=== PATIENT | female | born 1975 | race Caucasian/White ===

== ENCOUNTER 2017-07-28 22:13 | Inpatient (IN) ==
[2017-07-28] MEDS ORDERED: DOCUSATE 100 MG CAPSULE PO PRN (22:50)
[2017-07-28] MEDS ORDERED: NORMAL SALINE 10 ML SYRINGE FLUSH IVP PRN (22:50)
[2017-07-28] MEDS ORDERED: CALCIUM CARBONATE 500 MG (TUMS) CHEWABLE TABLET PO PRN (22:50)
[2017-07-28] MEDS ORDERED: LIDOCAINE W/ SODIUM BICARB 0.5 ML SYR SUBD PRN (22:50)
[2017-07-29] MEDS: HYDROmorphone 2 MG/1 ML IVP PRN ×2 (00:34→08:14)
[2017-07-29] MEDS: Sodium Chloride 0.9% 1,000 ML PRIMARY IV SCH ×3 (00:35→17:06)
--- NOTE | 2017-07-29 01:18 | PDOC ---
HPI - History of Present Illness Date of Service: 07/29/17 Time of Service: 01:13 Chief Complaint: Abdominal pain History of Present Illness: This very pleasant 42-year-old female who lives in [place], [place], and suffers from rheumatoid arthritis and postsurgical menopause for which she is on hormone replacement therapy who presents accompanied with her family here tonight in transfer from Dr. Ceja for acute pancreatitis. She states that she developed abdominal pain as her chief complaint at approximate 6:30 tonight. She has had some nausea and diarrhea and vomiting with that. She is not had this happen before. She has noticed some left shoulder pain and right arm numbness with this as well. She states that lately she has not been feeling very good when she has been eating and his had some vague abdominal pain or abdominal discomfort. She states that morphine did help control the pain in [place]. She was diagnosed with acute pancreatitis based on her CT scan, but they did not have the ability to do an ultrasound to look at the gallbladder more specifically. The patient states that she was quite chilled and was freezing, but no recorded fevers. She states that she drinks occasionally, and she does work as a mechanic sound technician. She is on simponi for her rheumatoid arthritis and on my review it does not appear that pancreatitis has been a reported complication of this drug. Estradiol however is known to cause pancreatitis. I was asked to accept the patient for care of the pancreatitis, and continued workup of the potential etiologies including cholelithiasis. Past Medical History Medical History: 1. Rheumatoid arthritis. 2. Postsurgical menopause on estradiol Surgical History: 1. Total abdominal hysterectomy with BSO Pertinent Family History: States that her mother and father are healthy. No major medical issues. Past Social History: Does not smoke. Occasionally drinks alcohol. Works as a mechanic sound technician and has a second job as well. Has 3 healthy children. . Tobacco Use: Never Smoker In the Past 12 Months, Have Used or Abuse Any of the Following Substance: None Alcohol Use: Occasionally Medication / Allergies Home Medications: Home Medications 3 Medication Instructions Recorded Confirmed Type Estradiol 1 QAM 06/03/10 06/03/10 History Ibuprofen 1 PRN6 PRN 06/03/10 06/03/10 History Golimumab [Simponi] 50 mg SUBCUT MONTHLY 07/29/17 07/29/17 History Allergies/Adverse Reactions: Allergies 3 Allergy/AdvReac Type Severity Reaction Status Date / Time No Known Allergies Allergy Unverified 06/03/10 13:47 Review of Systems - Review of Systems All Systems: Reviewed & No Additional Complaints Except as Stated (I did a 12 point review of systems and it is negative except for that in history present illness and that noted below.) - Constitutional Constitutional: REPORTS: Fever / Chills (No fevers but having chills) - Respiratory Respiratory: REPORTS: Negative System Review - Cardiovascular Cardiovascular: REPORTS: Negative System Review - Gastrointestinal Gastrointestinal / Abdominal: REPORTS: Nausea, Vomiting, Diarrhea, Abdominal Pain, See HPI - Genitourinary Genitourinary: REPORTS: Negative System Review - Neurological Neurologic: REPORTS: Headache (States that she had migraine headaches up until one year ago.) - Additonal Details Additional ROS Details: Takes occasional ibuprofen for aches and pains. States that she typically has rheumatoid flares the tensor the 15th of every month, but does not take anything different for those. Exam - Vitals Vital Signs: Vital Signs Temperature 97.8 F Temperature Source Temporal Artery Scan Pulse Rate [Pulse Oximeter] 79 Respiratory Rate 18 Blood Pressure [Right Arm] 132/90 Pulse Ox 94 Oxygen Delivery Method Room Air Height 5 ft 6 in Weight 204 lb 12.8 oz - General General Appearance: No Acute Distress, Cooperative - Head Head Exam: Normal Inspection, Normocephalic, Atraumatic - Eye Eye Exam: POSITIVE: No Scleral Icterus - ENT ENT Exam: POSITIVE: Mucous Membranes Moist - Neck Neck Exam: Normal Inspection, No Tenderness, No Lymphadenopathy, No Thyromegaly , JVP is not Raised - Respiratory Respiratory Exam: POSITIVE: Clear to Auscultation - Bilaterally, Normal To Percussion, Normal to Percussion and Palpation - Cardiovascular Cardiovascular Exam: POSITIVE: RRR, No Murmur, No Clicks, No Gallops, No Rubs, No JVD - GI/Abdominal GI/Abdominal Exam: POSITIVE: Normal Bowel Sounds, Non Tender, Non Distended, Soft - Rectal Rectal Exam: POSITIVE: Deferred - External Exam: POSITIVE: Deferred Exam: POSITIVE: Deferred - Extremities Extremities Exam: POSITIVE: No Clubbing Present, No Edema Present, No Cyanosis Present - Back Back Exam: POSITIVE: CVA Tenderness (L) - Neurological Neurological Exam: POSITIVE: Alert, Oriented x 3, No Facial Droop, Speech Intact / Clear, Moves All Extremities Equally - Integumentary Integumentary Exam: POSITIVE: Normal Color, Warm, Dry, Intact Additional Integumentary Exam Details: Multiple tattoos. Back, arms, legs - Central Line Examination Central Line Present on Admission: No Results - Labs Additional Lab Results: Urinalysis from [place] was negative. Lipase was 39,466 H. pylori and blood was negative. CBC showed white blood cell count of 8.79, hemoglobin 15, hematocrit 42.8, platelets 205,000, 53.9 segs and no bands reported Sodium is 140, potassium low at 3.3, chloride 102, CO2 24.9, BUN 13, creatinine 0.85, glucose 98. Calcium 9.7 Total protein 8.3, albumin 4.2, ALT 30, AST 25, total bilirubin 0.4, alkaline phosphatase is 60 - Imaging Status: Image Reviewed by Me (I did look at the images of the CAT scan and the acute abdominal series. I do not have actual reports of these films. I will have our radiologist over read them. The acute abdominal series appears normal on my view with no evidence of pneumonia or issues with the bowel gas pattern. I don't think that there is actual evidence of an inflamed pancreas on the CT scan, and per my review of Dr. Ceja's note it appears that the patient had some liver cysts but otherwise unremarkable CT scan without abnormal pancreas.) Assessment and Plan - Patient Problems (1) Pancreatitis Current Visit: Yes Status: Acute Code(s): K85.90 - Acute pancreatitis without necrosis or infection, unspecified Qualifiers: Chronicity: acute Pancreatitis type: unspecified pancreatitis type Acute pancreatitis complication: no infection or necrosis Qualified Code(s): K85.90 - Acute pancreatitis without necrosis or infection, unspecified (2) Rheumatoid arthritis Current Visit: Yes Status: Acute Code(s): M06.9 - Rheumatoid arthritis, unspecified Qualifiers: Rheumatoid arthritis location: multiple sites Rheumatoid factor presence: unspecified presence Qualified Code(s): M06.9 - Rheumatoid arthritis, unspecified (3) Postsurgical menopause Current Visit: Yes Status: Acute Code(s): E89.40 - Asymptomatic postprocedural ovarian failure - Assessment / Plan Additional Assessment/Plan Details: Admit the patient. Nothing by mouth/IV fluids/pain control. Get ultrasound of gallbladder/abdominal ultrasound this morning Check triglycerides this morning. Also check lipase this morning Ultimately, if no cause can be found, it's likely related to the estradiol and that should be discontinued. I'm can hold off on this medicine for now. I cannot rule out simponi as a cause, but it is not reported. Check labs this a.m. Given her itching on narcotics, I will go ahead and prescribe Benadryl as well. I will started telemetry monitoring and pulse ox monitoring given narcotics and Benadryl dosing as well. Plan above discussed with patient and she agrees. She is full code. I reviewed the records provided by Dr. Ceja in the [facility].
[2017-07-29] MEDS: ONDANSETRON 4 MG/2 ML VIAL IVP PRN ×3 (01:28→09:13)
[2017-07-29] MEDS ORDERED: diphenhydrAMINE 50 MG/1 ML VIAL IVP PRN (01:36)
[2017-07-29 05:24] LABS: BASOPHILS # (AUTO) 0.02 10*3/UL; BASOPHILS % (AUTO) 0.3 % (0-1); EOSINOPHILS # (AUTO) 0.24 10*3/UL; EOSINOPHILS % (AUTO) 3.5 % (0-8); Hematocrit [HCT] 38.2 % (37.0-47.0); Hemoglobin [HGB] 12.7 g/dL (12.0-16.0); LYMPHOCYTES # (AUTO) 1.51 10*3/uL; MEAN CORPUSCULAR HGB CONC 33.2 g/dL (33-37); MEAN CORPUSCULAR VOLUME 90.1 FL (81-99); MONOCYTES # (AUTO) 0.36 10*3/UL (0.3-0.8); MONOCYTES % (AUTO) 5.3 % (5-15); NEUTROPHILS # (AUTO) 4.67 10*3/UL; NEUTROPHILS % (AUTO) 68.6 % (50-80); RED BLOOD COUNT 4.24 10^6/uL (4.20-5.40)
[2017-07-29 05:30] LABS: BLOOD UREA NITROGEN 9 mg/dL (7-22); BUN/CREATININE RATIO 12.85 (6-20); LIPASE 150 IU/L (23-300); SERUM ALBUMIN 3.9 g/dL (3.5-4.8)
[2017-07-29 05:31] LABS: PLATELET MORPHOLOGY COMMENT NORMAL MORPHOLOGY (NORM); RBC MORPHOLOGY COMMENT NORMAL MORPHOLOGY (NORM); WBC MORPHOLOGY COMMENT NORMAL MORPHOLOGY (NORM)
[2017-07-29] MEDS: ACETAMINOPHEN 325 MG TABLET PO PRN ×2 (05:42→11:25)
[2017-07-29 05:52] LABS: CHOL/HDL RATIO 3.19 RATIO (0-4.0)
[2017-07-29 08:34] VITALS: TEMP 97.2
[2017-07-29] MEDS ORDERED: Pantoprazole Inj 40 MG in Normal Saline Flush 10 ML IVP SCH (09:00)
[2017-07-29] MEDS ORDERED: Prochlorperazine Edisylate Inj 10mg/2ml vial ONE (11:16)
[2017-07-29] MEDS ORDERED: Prochlorperazine Edisylate Inj 10mg/2ml vial IVP PRN (11:17)
--- NOTE | 2017-07-29 12:50 | DI ---
ABDOMINAL ULTRASOUND, 07/29/2017 7:00 AM: Clinical History: Pancreatitis. Previous Exam: None at this facility. Scans are performed through the right and left upper quadrants in multiple projections. The gallbladder is well distended and has a normal wall thickness. There are no gall stones. Common b ile duct measures 4 mm. The visualized portions of the right and left lobes of the liver, both kidney s, and the spleen are normal. The head and body of the pancreas are visualized and that structure is normal. There is no evidence of dilatation of the pancreatic duct or of peripancreatic fluid collecti ons. The IVC and aorta are normal. READING: Normal abdominal ultrasound. The pancreas has a normal appearance.
[2017-07-29 13:11] LABS: AMPHETAMINE SCREEN NEGATIVE (NEG); CANNABINOID SCREEN,URINE NEGATIVE (NEG); COCAINE SCREEN NEGATIVE (NEG); METHADONE URINE SCREEN NEGATIVE (NEG); METHAMPHETAMINES SCREEN,URINE NEGATIVE (NEG); OPIATE SCREEN,URINE POSITIVE (NEG); URINE SAMPLE TYPE VOIDED SPECIMEN; URINE SPECIFIC GRAVITY - MAN 1.024
[2017-07-29 15:30] VITALS: BP 128/81; RESP 12; O2SAT 95
--- NOTE | 2017-07-29 16:58 | DCSUMMARY ---
Hospitalization Summary Admit Date: 07/29/2017 Discharge Date: 07/29/17 Primary Diagnosis:: viral gastroenteritis Hospital Course: This very pleasant 42-year-old female that resides in [place], [place]. She presented there with abdominal pain, nausea, vomiting, and diarrhea. Lipase was quite elevated, and she was sent here as they did not have the ability to do an ultrasound. CT scan there did not show any evidence of pancreatitis but showed some liver cysts. The patient got here, was placed on pain medications, nothing by mouth, IV fluids, and antiemetics. She improved to the point where we can advance her diet, and she had chicken noodle soup and did not have any worsening of nausea, vomiting, or diarrhea. In fact her diarrhea resolved. She felt the nausea medication alone would help and she was to go home. She did not have any complaints of chest pain, shortness breath, nausea or vomiting at 5:00. She was examined earlier this afternoon. She had a regular rate and rhythm on her heart, lungs were clear, abdomen soft and nontender, no edema. Assessment and Plan: 1. As per discharge assessments noted 2. Disposition: Patient is discharged home. 3. Condition on discharge, stable and improved. 4. Diet: Brat diet for 2 days then resume regular diet. 5. Activities: resume normal activities 6. Follow-Up: 1. See primary care provider in one week or sooner if symptoms persist. 2. 7. Medications at the Time of Discharge: Home Medications 3 Medication Instructions Recorded Confirmed Type Estradiol 1 QAM 06/03/10 06/03/10 History Ibuprofen 1 PRN6 PRN 06/03/10 06/03/10 History Golimumab [Simponi] 50 mg SUBCUT MONTHLY 07/29/17 07/29/17 History Ondansetron HCl [Zofran] 4 mg PO Q6H PRN #20 tablet 07/29/17 Rx This is a same-day admission and discharge. Exam - Vitals Vital Signs: Vital Signs Temperature 97.2 F Temperature Source Temporal Artery Scan Pulse Rate [Pulse Oximeter] 96 Pulse Rate 59 Respiratory Rate 12 Blood Pressure [Right Arm] 128/81 Pulse Ox 95 Oxygen Flow Rate 1 Oxygen Delivery Method Room Air Height 5 ft 6 in Weight 204 lb 12.8 oz - General General Appearance: No Acute Distress, Cooperative - Head Head Exam: Normal Inspection, Normocephalic, Atraumatic - Eye Eye Exam: POSITIVE: No Scleral Icterus - Respiratory Respiratory Exam: POSITIVE: Clear to Auscultation - Bilaterally, Breathing Non Labored - Cardiovascular Cardiovascular Exam: POSITIVE: RRR, No Murmur, No Clicks, No Gallops, No Rubs, No JVD - GI/Abdominal GI/Abdominal Exam: POSITIVE: Normal Bowel Sounds, Non Tender, Non Distended, Soft - Extremities Extremities Exam: POSITIVE: No Clubbing Present, No Edema Present, No Cyanosis Present - Neurological Neurological Exam: POSITIVE: Alert, Oriented x 3, No Facial Droop, Speech Intact / Clear, Moves All Extremities Equally Data Peritnent Studies: Laboratory Results 07/29/17 07/29/17 07/29/17 Range/Units 04:36 04:36 04:36 WBC 6.81 (4.8-10.8) 10^3/uL RBC 4.24 (4.20-5.40) 10^6/uL Hgb 12.7 (12.0-16.0) g/dL Hct 38.2 (37.0-47.0) % MCV 90.1 (81-99) FL MCH 30.0 (27-31) PG MCHC 33.2 (33-37) g/dL RDW Std Deviation 42.5 (39-50) fL RDW Coeff of Wanda 13.2 (11.5-14.5) % Plt Count 183 (140-350) 10*3/uL MPV 13.0 H (7.4-12.2) FL Immature Gran % (Auto) 0.1 (0-5) % Neut % (Auto) 68.6 (50-80) % Lymph % (Auto) 22.2 (10-50) % Harding % (Auto) 5.3 (5-15) % Eos % (Auto) 3.5 (0-8) % Baso % (Auto) 0.3 (0-1) % Immature Gran # (Auto) 0.01 10*3/UL Neut # (Auto) 4.67 10*3/UL Lymph # (Auto) 1.51 10*3/uL Harding # (Auto) 0.36 (0.3-0.8) 10*3/UL Eos # (Auto) 0.24 10*3/UL Baso # (Auto) 0.02 10*3/UL WBC Morphology Comment Normal morphology (NORM) Plt Morphology Comment Normal morphology (NORM) RBC Morph Comment Normal morphology (NORM) PT 10.6 (9.7-11.4) secs INR 1.00 (0.00-5.90) N/A Sodium 143 (135-145) meq/L Potassium 4.3 (3.8-5.2) meq/L Chloride 108 (98-112) meq/L Carbon Dioxide 24 (23-33) meq/L Anion Gap 11 (5-20) BUN 9 (7-22) mg/dL Creatinine 0.7 (0.50-1.20) mg/dL Estimated GFR > 60 (>60 ml/min/1.73m(2)) BUN/Creatinine Ratio 12.85 (6-20) Glucose 94 (78-110) mg/dL Calculated Osmolality 294.0 H (267-292) mOsm/kg Calcium 8.6 L (8.7-10.7) mg/dL Total Bilirubin 0.3 (0.3-1.2) mg/dL AST 38 (8-39) IU/L ALT 32 (9-52) IU/L Alkaline Phosphatase 45 (38-126) IU/L Total Protein 6.8 (6.1-8.0) g/dL Albumin 3.9 (3.5-4.8) g/dL Globulin 2.9 (2.50-4.10) g/dL Albumin/Globulin Ratio 1.30 (1.3-2.0) mg/g Triglycerides (44-200) mg/dL Cholesterol (120-200) mg/dL LDL Cholesterol, Calc mg/dL VLDL Cholesterol (0-40) mg/dL HDL Cholesterol (40-150) mg/dL Cholesterol/HDL Ratio (0-4.0) RATIO Lipase 150 (23-300) IU/L Ur Collection Type U Specif Grav (Refrac) Urine Opiates Screen (NEG) Ur Buprenorphine (NEG) Ur Oxycodone Screen (NEG) Urine Methadone Screen (NEG) Ur Propoxyphene Screen (NEG) Barbiturate Screen (NEG) U Tricyclic Antidepress (NEG) Phencyclidine Screen (NEG) Amphetamines Screen (NEG) U Methamphetamines Scrn (NEG) Benzodiazepines Screen (NEG) Cocaine Screen (NEG) U Marijuana (THC) Screen (NEG) 07/29/17 07/29/17 Range/Units 04:36 12:50 WBC (4.8-10.8) 10^3/uL RBC (4.20-5.40) 10^6/uL Hgb (12.0-16.0) g/dL Hct (37.0-47.0) % MCV (81-99) FL MCH (27-31) PG MCHC (33-37) g/dL RDW Std Deviation (39-50) fL RDW Coeff of Wanda (11.5-14.5) % Plt Count (140-350) 10*3/uL MPV (7.4-12.2) FL Immature Gran % (Auto) (0-5) % Neut % (Auto) (50-80) % Lymph % (Auto) (10-50) % Harding % (Auto) (5-15) % Eos % (Auto) (0-8) % Baso % (Auto) (0-1) % Immature Gran # (Auto) 10*3/UL Neut # (Auto) 10*3/UL Lymph # (Auto) 10*3/uL Harding # (Auto) (0.3-0.8) 10*3/UL Eos # (Auto) 10*3/UL Baso # (Auto) 10*3/UL WBC Morphology Comment (NORM) Plt Morphology Comment (NORM) RBC Morph Comment (NORM) PT (9.7-11.4) secs INR (0.00-5.90) N/A Sodium (135-145) meq/L Potassium (3.8-5.2) meq/L Chloride (98-112) meq/L Carbon Dioxide (23-33) meq/L Anion Gap (5-20) BUN (7-22) mg/dL Creatinine (0.50-1.20) mg/dL Estimated GFR (>60 ml/min/1.73m(2)) BUN/Creatinine Ratio (6-20) Glucose (78-110) mg/dL Calculated Osmolality (267-292) mOsm/kg Calcium (8.7-10.7) mg/dL Total Bilirubin (0.3-1.2) mg/dL AST (8-39) IU/L ALT (9-52) IU/L Alkaline Phosphatase (38-126) IU/L Total Protein (6.1-8.0) g/dL Albumin (3.5-4.8) g/dL Globulin (2.50-4.10) g/dL Albumin/Globulin Ratio (1.3-2.0) mg/g Triglycerides 53 (44-200) mg/dL Cholesterol 166 (120-200) mg/dL LDL Cholesterol, Calc 103.400 mg/dL VLDL Cholesterol 10 (0-40) mg/dL HDL Cholesterol 52 (40-150) mg/dL Cholesterol/HDL Ratio 3.19 (0-4.0) RATIO Lipase (23-300) IU/L Ur Collection Type Voided specimen U Specif Grav (Refrac) 1.024 Urine Opiates Screen Positive H (NEG) Ur Buprenorphine Negative (NEG) Ur Oxycodone Screen Negative (NEG) Urine Methadone Screen Negative (NEG) Ur Propoxyphene Screen Negative (NEG) Barbiturate Screen Negative (NEG) U Tricyclic Antidepress Negative (NEG) Phencyclidine Screen Negative (NEG) Amphetamines Screen Negative (NEG) U Methamphetamines Scrn Negative (NEG) Benzodiazepines Screen Negative (NEG) Cocaine Screen Negative (NEG) U Marijuana (THC) Screen Negative (NEG) [address] [facility] [place] [id number] PH: DD: [phone] FAX: [phone] ~DIAGNOSTIC IMAGING REPORT~ Patient: STEVO WATTS : 1975 Sex: F Age: 42 Exam Name: US Abdomen Complete Exam Date: 07/29/17 Report # : [id number] CPT Code: 67973 EMR/MR #: [id number] Ordering: JAGRUTI SOLORZANO Admiting: AJGRUTI SOLORZANO DO Primary: KYRIE WALL MD. Attending: JAGRUTI SOLORZANO DO Signed ABDOMINAL ULTRASOUND, 07/29/2017 7:00 AM: Clinical History: Pancreatitis. Previous Exam: None at this facility. Scans are performed through the right and left upper quadrants in multiple projections. The gallbladder is well distended and has a normal wall thickness. There are no gall stones. Common bile duct measures 4 mm. The visualized portions of the right and left lobes of the liver, both kidneys, and the spleen are normal. The head and body of the pancreas are visualized and that structure is normal. There is no evidence of dilatation of the pancreatic duct or of peripancreatic fluid collections. The IVC and aorta are normal. READING: Normal abdominal ultrasound. The pancreas has a normal appearance. Dictated By: 07/29/17 1038 JERROD BETH MD. Signed By: 07/29/17 1250 JERROD BETH MD. Patient Problems - Patient Problem List (1) Gastroenteritis Current Visit: Yes Status: Acute Code(s): K52.9 - Noninfective gastroenteritis and colitis, unspecified Category: Medical (2) Rheumatoid arthritis Current Visit: Yes Status: Acute Code(s): M06.9 - Rheumatoid arthritis, unspecified Qualifiers: Rheumatoid arthritis location: multiple sites Rheumatoid factor presence: unspecified presence Qualified Code(s): M06.9 - Rheumatoid arthritis, unspecified Category: Medical (3) Postsurgical menopause Current Visit: Yes Status: Acute Code(s): E89.40 - Asymptomatic postprocedural ovarian failure Category: Medical
== END 2017-07-29 17:25 | disposition home or self-care (01) | DRG 391 ==
LOC: MED/SURG 23:42
PROVIDERS: ADMIT Family Medicine; ATTEND Family Medicine